=== PATIENT | male | born 2000 | race Caucasian/White ===

== ENCOUNTER 2018-11-29 13:31 | Emergency (ER) | payer BC ==
[~2018-11-29] VITALS: Ht 177.8 cm; Wt 87.5 kg
[2018-11-29 13:35] VITALS: BP 123/83; Ht 177.8 cm; Wt 87.5 kg
== END 2018-11-29 14:28 | disposition home or self-care (01) ==
LOC: ED 13:31
DX: S62.316A Displaced fracture of base of fifth metacarpal bone, right hand, initial encounter for closed fracture (principal); W01.0XXA Fall on same level from slipping, tripping and stumbling without subsequent striking against object, initial encounter; Y93.89 Activity, other specified; Y92.39 Other specified sports and athletic area as the place of occurrence of the external cause; Y99.8 Other external cause status